=== PATIENT | female | born 1985 | race Caucasian/White ===

== ENCOUNTER → 2023-06-25 10:16 | Outpatient (CLI) | payer OTHER, SELFPAY ==
--- NOTE | ~2023-06-25 | MM_ITS ---
EXAMINATION: MM screening [facility] BI w [facility]ly HISTORY: Baseline screening mammogram TECHNIQUE: Craniocaudal and mediolateral oblique 3-D tomosynthesis images were obtained and synthetic 2-D images were generated. CAD analysis was submitted and interpreted. COMPARISON: None, baseline BREAST PARENCHYMAL COMPOSITION: There are scattered areas of fibroglandular density. FINDINGS: RIGHT BREAST: There is focal asymmetry in the middle third of the upper-outer quadrant of the breast 8 cm from the nipple. LEFT BREAST: An asymmetry is present in the middle third of the slightly inner breast 7 cm from the n ipple on the craniocaudal view. IMPRESSION: 1. Bilateral breast findings as described above. 2. Additional mammographic views and possible breast ultrasound are recommended. BI-RADS Category 0: Incomplete: Needs additional imaging evaluation. Reviewed, dictated and finalized at location A. IMPRESSION: 1. Bilateral breast findings as described above. 2. Additional mammographic views and possible breast ultrasound are recommended . BI-RADS Category 0: Incomplete: Needs additional imaging evaluation.
== END ==
PROVIDERS: PCP Nurse Practitioner; Visit Provider Nurse Practitioner
DX: Z12.31 Encounter for screening mammogram for malignant neoplasm of breast (principal); N64.89 Other specified disorders of breast
CPT/HCPCS: 77063; 77067

== ENCOUNTER 2023-07-20 09:22 | Outpatient (CLI) | payer OTHER, SELFPAY ==
--- NOTE | ~2023-07-20 | MMUS_ITS ---
EXAMINATION: MM diagnostic [facility] BI w shelly, US breast RT limited HISTORY: Bilateral mammographic asymmetries reported on 06/25/2023 TECHNIQUE: Additional 3-D tomosynthesis images of both breasts were performed and synthetic 2-D image s were generated. CAD analysis was submitted and interpreted. High resolution limited right breast ul trasound was performed. COMPARISON: 06/25/2023 bilateral screening mammogram FINDINGS: MAMMOGRAPHIC FINDINGS: Right diagnostic mammogram: There is asymmetric right upper outer quadrant probable fibroglandular de nsity but no apparent suspicious mass or suspicious architectural distortion is noted. Left diagnostic mammogram: The focal asymmetry noted in the middle third of slightly inner breast 7 c m from the nipple on left craniocaudal view compresses out. No suspicious mass or architectural disto rtion is noted. ULTRASOUND: Ultrasound of the upper outer quadrant of the right breast reveals no suspicious mass or shadowing, c yst or other significant sonographic abnormality. IMPRESSION: 1. No mammographic or sonographic evidence of malignancy of right breast. No mammographic evidence of malignancy left breast. 2. Routine annual mammographic screening is recommended BI-RADS Category 1: Negative Reviewed, dictated and finalized at location A. IMPRESSION: 1. No mammographic or sonographic evidence of malignancy of right breast. No ma mmographic evidence of malignancy left breast. 2. Routine annual mammographic screening is recommended BI-RADS Category 1: Negative
== END 2023-07-20 09:23 ==
LOC: MICIMG 09:23
PROVIDERS: PCP Obstetrics & Gynecology Gynecology; Visit Provider Obstetrics & Gynecology Gynecology
DX: R92.8 Other abnormal and inconclusive findings on diagnostic imaging of breast (principal)
CPT/HCPCS: 76642; 77062; 77066; G0279

== ENCOUNTER 2024-06-20 08:16 | Outpatient (CLI) | payer OTHER, SELFPAY ==
--- NOTE | ~2024-06-20 | US_ITS ---
Limited Abdominal Sonogram: Real-time sonographic imaging of the right upper quadrant was performed. Clinical History: Elevated liver enzymes Findings: The liver appears echogenic, with no evidence of mass lesion or bile duct dilatation. Main portal vein demonstrates normal direction of flow. The gallbladder is well distended, and appears no rmal with no evidence of gallstone or wall thickening. The common bile duct measures 3 mm. The visua lized pancreas, aorta, and IVC are unremarkable. Right kidney measures 10.4 cm in length, without hyd ronephrosis. Impression: Diffuse fatty infiltration of the liver. Reviewed, dictated and finalized at location M. Impression: Diffuse fatty infiltration of the liver.
== END 2024-06-20 08:17 ==
PROVIDERS: PCP Obstetrics & Gynecology Gynecology; Visit Provider Nurse Practitioner
DX: R74.8 Abnormal levels of other serum enzymes (principal); R10.11 Right upper quadrant pain
CPT/HCPCS: 76705

== ENCOUNTER 2025-02-13 10:10 | Outpatient (CLI) | payer OTHER, SELFPAY ==
--- NOTE | ~2025-02-13 | MM_ITS ---
EXAMINATION: MM screening [facility] BI w [facility]ly HISTORY: Screening TECHNIQUE: Craniocaudal and mediolateral oblique 3-D tomosynthesis images were obtained and synthetic 2-D images were generated. CAD analysis was submitted and interpreted. COMPARISON: Comparison to multiple prior studies sequentially, with oldest reviewed study dated 06/25. BREAST PARENCHYMAL COMPOSITION: Not dense: There are scattered areas of fibroglandular density. FINDINGS: There is no evidence of suspicious mass, calcification, or architectural distortion to sugg est malignancy in either breast. There has been no suspicious interval change. IMPRESSION: 1. No mammographic evidence of malignancy. 2. Recommend routine screening mammography in one year. BI-RADS Category 1: Negative Reviewed, dictated and finalized at location A.
--- OUTSIDE RECORDS SUMMARY | 2025-02-13 11:07 | XMS_ITS | Clinical Summary ---
Author Organization [facility] Address [address] [place] [address] Care Team Providers Care Rug Layer Name Role Phone Sushila Yusuf NP Primary Care Provider [phone] Allergies No known active allergies Medications TRI-SPRINTEC 0.18/0.215/0.25 MG-35 MCG tablet 07/17/2022 Ac tive dicyclomine (BENTYL) 20 MG tablet Take 1 tablet (20 mg total) by mouth every 6 (six) hours. Active Active Problems Problem Noted Date Diagnosed Date Elevated liver enzymes 06/09/2024 Overview (06/09/2024): Recently elevated from her recent blood work. AST 34. ALT 56. No excessive alcohol use or Tylenol use. Assessment & Plan (06/09/2024 12:24 PM CDT): Will obtain liver ultrasound. Will repeat liver enzymes in 4 months. Diet recommendations discussed to assist with lowering liver enzymes. Right upper quadrant pain 06/09/2024 Overview (06/09/2024): New problem. Has noticed intermittent right upper quadrant pain. Patient does still have her gallbladder. Her recent lab results did note elevated AST and ALT. Assessment & Plan (06/09/2024 12:18 PM CDT): Will obtain abdominal ultrasound at this time. If pain becomes more frequent or worse to follow-up. Irritable bowel syndrome with diarrhea Overview (06/09/2024): History of IBS/D. Will have gas and bloating. Currently taking dicyclomine and tolerates well. Denies unintentional weight loss or blood in stool. GI workup recently done came back negative. Assessment & Plan (06/09/2024 12:17 PM CDT): Encouraged following healthy well-balanced diet, can continue dicyclomine for IBS-D symptoms. Encourage increasing fiber in diet. Encouraged following a diet rich in lean meats, fresh fruits and vegetables. Encourage getting at least 25 grams of fiber in diet per day. Obesity (BMI 30-39.9) 09/18/2022 Assessment & Plan (06/09/2024 12:14 PM CDT): Encourage following a healthy well-balanced diet, encourag eating lean meats, fresh fruits and vegetables. Assessment & Plan (09/18/2022 11:35 AM CDT): Following with endo Dr. Cory Boo for weightloss management. Following every 6 months. Hypothyroidism, unspecified type 09/18/2022 Overview (06/09/2024): Recent TSH in normal range. Resolved Problems Problem Noted Date Diagnosed Date Resolved Date Pure hypercholesterolemia 06/09/2024 Immunizations Name Administration Dates Next Due Tdap (Adacel) 06/09/2024 Family History Medical History Relation Comments Hypertension Father Sleep Apnea Father Liver cancer Maternal Grandmother Diabetes Paternal Grandmother Relation Status Comments Father Maternal Grandmother Paternal Grandmother Social History Tobacco Use Types Packs/Day Years Used Date Smoking Tobacco: Never Passive Smoke Exposure: Never Smokeless Tobacco: Never Tobacco Cessation:Counseling Given: No Alcohol Use Standard Drinks/Week Comments Yes 0 (1 standard drink = 0.6 oz pur e alcohol) socially PHQ-2 Answer Date Recorded Patient Health Questionnaire-2 Score 0 03/07/2024 Comments No Sex and Gender Information Value Date Recorded Sex Assigned at Not on file Legal Sex Female 2:10 PM CDT Gender Identity Not on file Sexual Orientation Not on file Last Filed Vital Signs Vital Sign Reading Time Taken Comments Blood Pressure 110/70 06/09/2024 11:44 AM CDT Pulse 77 06/09/2024 11:44 AM CDT Temperature 36.9 C (98.4 F) 06/09/2024 11:44 AM CDT Respiratory Rate 18 06/09/2024 11:44 AM CDT Oxygen Saturation 100% 06/09/2024 11:44 AM CDT Inhaled Oxygen Concentration - - Weight 102.5 kg (226 lb) 06/09/2024 11:44 AM CDT Height 168.9 cm (5' 6.5 ) 06/09/2024 11:44 AM CD T Body Mass Index 35.93 06/09/2024 11:44 AM CDT Plan of Treatment Health Maintenance Due Date Last Done Comments Hepatitis B Vaccines (1 of 3 - 19+ 3-dose series) 2002 Cervical Cancer Screening Pa p with HPV Testing (Age 30 to 64) Every 5 Years 2013 COVID-19 Vaccine (2023-2 5 season) 2024 PHQ-2 (Physician [place]) 11/15/2024 03/07/2024 Annual Physical 06/09/2025 06/09/2024, 09/18/2022 Mammogram Screening 07/20/2025 07/20/2023 Cervical Cancer Screening Pa p Smear (Age 30 to 64) Every 3 Years 11/05/2026 11/05/2023 Cervical Cancer Screening wi HPV 11/05/2026 DTaP, Tdap and Td Vaccines ( 2 - Td or Tdap) 06/09/2034 06/09/2024 Hepatitis C Completed 05/17/2024 HPV Vaccines Aged Out No longer eligi ble based on patient's age to complete this topic Meningococcal B Vaccine Aged Out No l onger eligible based on patient's age to complete this topic Meningococcal Vaccine Aged Out No sue benoit eligible based on patient's age to complete this topic Pneumococcal Vaccine: Pediatrics (0 to 5 Years) and At-Risk Patients (6 to 64 Years) Aged Out No longer eligible b ased on patient's age to complete this topic RSV Immunizations Under 20 Months Aged Out No longer eligible b ased on patient's age to complete this topic Procedures Procedure Name Priority Date/Time Associated Diagnosis Comments HEPATITIS C ANTIBODY W/RFX TO HCV RNA Routine 05/17/2024 8:26 AM CDT Need for hepatitis C screening test OUTSIDE CYTOPATH CERV/VAG INTERPRET (PAP) (SCAN ORDER) 11/05/2023 MAMMOGRAM GENERIC (SCAN ORDER) 07/20/2023 from Last 3 Months or Most Recently Relevant to Health Maintenance Results * HEPATITIS C ANTIBODY W/RFX TO HCV RNA ([facility] ONLY) (05/17/2024 8:26 AM CDT) HEPATITIS C AB NON-REACT PRABHU NON-REACT PRABHU [facility] Comment: HCV antibody was non-reactive. There is no laboratory evidence of HCV infection. In most cases, no further action is required. However, if recent HCV exposure is suspected, a test for HCV RNA (test code 74880) is suggested. For additional information please refer to http://education.Rue89/faq/HVQ96d0 (This link is being provided for informational/ educational purposes only.) 05/17/2024 8:26 AM CDT 05/17/2024 8:28 AM CDT Narrative [facility] - 05/21/2024 1:34 PM CDT FASTING:YES FASTING: YES Resulting Agency Comment Performing Organization Information: Site ID: [place] Name: [facility] Address: [address] [id number] Director: Trina Stringer MD us Sushila Yusuf NP LABORATORY Final Res ult [facility] [id number] [id number], [place] * PAP SMEAR (SCAN ORDER) (11/05/2023) 11/05/2023 [facility] Scanned SCANNING Final Resu lt * MAMMOGRAM GENERIC (SCAN ORDER) (07/20/2023) Anatomical Region Laterality Modality Other 07/20/2023 [facility] Scanned SCANNING Final Resu lt from Last 3 Months or Most Recently Relevant to Health Maintenance Insurance [facility] Care Teams Rug Layer Relationship Specialty Start Date End Date Sushila Yusuf NP [address] [place] [address] PCP - General NURSE PRACTITIONER 09/11/22
--- OUTSIDE RECORDS SUMMARY | 2025-02-13 11:07 | XMS_ITS | Clinical Summary ---
Author Organization [facility] Address [address] [place] [address] Care Team Providers Care Regional Driver Name Role Phone Mario Solis MD Primary Care Provider [phone] Source Comments [facility],non-owned Affiliates and Associated Physician Practices is amultiple site organization consisting of ambulatory clinics and hospital sitesin [place], [place], [place] and [place]. This disclosure is being madepursuant to the Care Everywhere program and may not contain all information available regarding this patient. Last updated 18.[facility] Allergies No known active allergies Medications * Be aware that medications may not be up to date on this document. Alwaysverify current medications with the patient. Medication Sig Dispensed Refills Start Date End Date Status Norgestim-Eth Estrad Triphasic (ORTHO TRI-CYCLEN LO PO) Active Family History Medical History Relation Name Comments Hypertension Father Relation Name Status Comments Father Social History Tobacco Use Types Packs/Day Years Used Date Smoking Tobacco: Never Smokeless Tobacco: Never Sex and Gender Information Value Date Recorded Sex Assigned at Not on file Gender Identity Not on file Sexual Orientation Not on file Last Filed Vital Signs Vital Sign Reading Time Taken Comments Blood Pressure 112/70 11/09/2018 9:26 AM SOCK KNITTING MACHINE OPERATOR Pulse 68 11/09/2018 9:26 AM SOCK KNITTING MACHINE OPERATOR Temperature 36.7 C (98.1 F) 11/09/2018 9:26 AM SOCK KNITTING MACHINE OPERATOR Respiratory Rate 16 08/30/2017 5:12 PM CDT Oxygen Saturation 99% 08/30/2017 5:12 PM CDT Inhaled Oxygen Concentration - - Weight 72.6 kg (160 lb) 11/09/2018 9:26 AM SOCK KNITTING MACHINE OPERATOR Height 167.6 cm (5' 6 ) 11/09/2018 9:26 AM SOCK KNITTING MACHINE OPERATOR Body Mass Index 25.82 11/09/2018 9:26 AM SOCK KNITTING MACHINE OPERATOR Plan of Treatment Health Maintenance Due Date Last Done Comments LIPID TESTING 1983 MAMMOGRAM 1983 PAP SMEAR 1983 HIV SCREENING 1998 HEPATITIS C SCREENING 02/09/2001 DTAP/TDAP/TD VACCINES (1 - Tdap) 2002 HEPATITIS B VACCINE (1 of 3 - 19+ 3-dose series) 2002 COVID-19 VACCINE (1 - 2023-2 5 season) 2024 INFLUENZA VACCINE (#1) 2024 DEPRESSION SCREENING 11/15/2024 ZOSTER VACCINE (1 of 2) 2033 HIB VACCINE Aged Out No longer eligi ble based on patient's age to complete this topic HPV VACCINE Aged Out No longer eligi ble based on patient's age to complete this topic MENINGOCOCCAL (Group B) VACC INE SHARED DECISION-MAKING Aged Out No longer eligibl e based on patient's age to complete this topic MENINGOCOCCAL GROUPS A/C/Y/W VACCINE Aged Out No longer eligible b ased on patient's age to complete this topic PNEUMOCOCCAL VACCINE Aged Out No long er eligible based on patient's age to complete this topic Care Teams Regional Driver Relationship Specialty Start Date End Date Mario Solis MD [address] [place] [address] PCP - General Family Medicine 01/05/17
== END 2025-02-13 10:11 | disposition home or self-care (01) ==
PROVIDERS: PCP Obstetrics & Gynecology Gynecology; Visit Provider Nurse Practitioner Women's Health
DX: Z12.31 Encounter for screening mammogram for malignant neoplasm of breast (principal)
CPT/HCPCS: 77063; 77067